=== PATIENT | male | born 1985 | race Caucasian/White ===

== ENCOUNTER 2025-06-10 10:12 | Emergency (ER) | payer BC, SELFPAY ==
[2025-06-10 10:15] VITALS: BP 121/88; PULSE 89; RESP 18; TEMP 36.7; O2SAT 98; BMI 34.3
--- OUTSIDE RECORDS SUMMARY | 2025-06-10 10:56 | XMS_ITS | Encounter Summary ---
Author Organization [facility] Address 1 [facility] [place] [address] Care Team Providers Care Closing Machine Operator Name Role Phone Caleb Barillas MD Primary Care Provider Reason for Visit * Reason Onset Date Comments Medication Refill 05/25/2025 Encounter Details Date Type Department Care Team (Late st Contact Info) Description 05/25/2025 Refill Primary Care, [place] [address] [place] [address] Caleb Barillas MD [address] [place] [address] Social History Tobacco Use Types Packs/Day Years Used Date Smoking Tobacco: Former Cigars Smokeless Tobacco: Former Alcohol Use Standard Drinks/Week Comments Yes 0 (1 standard drink = 0.6 oz pur e alcohol) occ Sex and Gender Information Value Date Recorded Sex Assigned at Not on file Legal Sex Male 7:55 PM EDT Gender Identity Not on file Sexual Orientation Not on file documented as of this encounter Functional Status * Deaf or serious difficulty hearing? Answer Date of Assessment Author No 07/18/2022 3:00 PM EDT Susan Orozco RN * Blind or serious difficulty seeing even with glasses? Answer Date of Assessment Author No 07/18/2022 3:00 PM EDT Susan Orozco RN * Serious difficulty walking/climbing stairs? Answer Date of Assessment Author No 07/18/2022 3:00 PM EDT Susan Orozco RN * Difficulty dressing or bathing? Answer Date of Assessment Author No 07/18/2022 3:00 PM EDT Susan Orozco RN * Has difficulty doing errands because of physical, mental or emotional condition? Answer Date of Assessment Author No 07/18/2022 3:00 PM EDT Susan Orozco RN documented as of this encounter Mental Status * Has serious difficulty concentrating, remembering or making decisions because of physical, mental or emotional condition ? Answer Entry Date Author No 07/18/2022 3:00 PM EDT Susan Orozco RN documented in this encounter Plan of Treatment Not on file documented as of this encounter Visit Diagnoses Not on filedocumented in this encounter Care Teams Closing Machine Operator Relationship Specialty Start Date End Date Caleb Barillas MD [address] [place] [address] [place] [address] PCP - General INTERNAL MEDICINE 12/30/19 documented as of this encounter
--- OUTSIDE RECORDS SUMMARY | 2025-06-10 10:56 | XMS_ITS | Encounter Summary ---
Author Organization [facility] Address 1 [facility] [place] [address] Care Team Providers Care Dimensional Inspector Name Role Phone Caleb Barillas MD Primary Care Provider [phone] Reason for Visit * Reason Comments Medication Refill Encounter Details Date Type Department Care Team (Late st Contact Info) Description 01/21/2022 Refill Family Medicine, [address] [address] Bhavana, Alf Nam MD [address] [place] [address] Social History Tobacco Use Types Packs/Day Years Used Date Smoking Tobacco: Every Day Cigars Smokeless Tobacco: Former Alcohol Use Standard Drinks/Week Comments Yes 15 (1 standard drink = 0.6 oz pu re alcohol) Sex and Gender Information Value Date Recorded Sex Assigned at Not on file Legal Sex Male 7:55 PM EDT Gender Identity Not on file Sexual Orientation Not on file COVID-19 Exposure Response Date Recorded In the last 10 days, have yo u been in contact with someone who was confirmed or suspected to have Coronavirus/COVID-19? No / Unsure 01/07/2022 2:29 PM EDT documented as of this encounter Functional Status * Deaf or serious difficulty hearing? Answer Date of Assessment Author No 04/05/2021 11:24 AM EDT Shelia Carter RN * Blind or serious difficulty seeing even with glasses? Answer Date of Assessment Author No 04/05/2021 11:24 AM EDT Carter, J essica A, RN * Serious difficulty walking/climbing stairs? Answer Date of Assessment Author No 04/05/2021 11:24 AM Shelia Alvarez RN * Difficulty dressing or bathing? Answer Date of Assessment Author No 04/05/2021 11:24 AM Shelia Alvarez RN * Has difficulty doing errands because of physical, mental or emotional condition? Answer Date of Assessment Author No 04/05/2021 11:24 AM Shelia Alvarez RN documented as of this encounter Mental Status * Has serious difficulty concentrating, remembering or making decisions because of physical, mental or emotional condition ? Answer Entry Date Author No 04/05/2021 11:24 AM Shelia Alvarez RN documented in this encounter Plan of Treatment Not on file documented as of this encounter Visit Diagnoses Not on filedocumented in this encounter Additional Health Concerns Infection Onset Date Last Indicated Resolved Time COVID-19 Rule-out 04/04/2022 04/04/2022 04/04/2022 8:01 PM EDT documented as of this encounter Care Teams Dimensional Inspector Relationship Specialty Start Date End Date Caleb Barillas MD [address] [place] [address] PCP - General INTERNAL MEDICINE 12/30/19 documented as of this encounter
--- OUTSIDE RECORDS SUMMARY | 2025-06-10 10:56 | XMS_ITS | Encounter Summary ---
Author Organization [facility] Address 1 [facility] [place] [address] Care Team Providers Care Registered Veterinary Technician Name Role Phone Caleb Barillas MD Primary Care Provider [phone] Reason for Visit * Reason Comments Medication Refill Encounter Details Date Type Department Care Team (Late st Contact Info) Description 01/23/2022 Refill Family Medicine, [address] [address] Bhavana, Alf Nam MD [address] [place] [address] Social History Tobacco Use Types Packs/Day [...] documented as of this encounter Care Teams Registered Veterinary Technician Relationship Specialty Start Date End Date Caleb Barillas MD [address] [place] [address] PCP - General INTERNAL MEDICINE 12/30/19 documented as of this encounter
--- OUTSIDE RECORDS SUMMARY | 2025-06-10 10:56 | XMS_ITS | Encounter Summary ---
Author Organization [facility] Address 1 [facility] [place] [address] Care Team Providers Care Printing Plate Clerk Name Role Phone Caleb Barillas MD Primary Care Provider [phone] Reason for Visit * Reason Onset Date Comments Medication Refill 05/19/2025 Encounter Details Date Type Department Care Team (Late st Contact Info) Description 05/19/2025 Refill Primary Care, [place] [address] [place] [address] Caleb Barillas MD [address] [place] [address] Social History Tobacco Use Types Packs/Day [...] on filedocumented in this encounter Care Teams Printing Plate Clerk Relationship Specialty Start Date End Date Caleb Barillas MD [address] [place] [address] [place] [address] PCP - General INTERNAL MEDICINE 12/30/19 documented as of this encounter
--- OUTSIDE RECORDS SUMMARY | 2025-06-10 10:56 | XMS_ITS | Encounter Summary ---
Author Organization [facility] Address 1 [facility] [place] [address] Care Team Providers Care Paper Cup Machine Tender Name Role Phone Caleb Barillas MD Primary Care Provider [phone] Reason for Visit * Reason Comments Medication Refill Encounter Details Date Type Department Care Team (Late st Contact Info) Description 04/24/2023 Refill Internal Medicine, [address] [address] Caleb Barillas MD [address] [place] [address] [place] [address] Social History Tobacco Use Types Packs/Day [...] suspected to have Coronavirus/COVID-19? No / Unsure 04/02/2023 6:04 PM EDT documented as of this encounter [...] on filedocumented in this encounter Care Teams Paper Cup Machine Tender Relationship Specialty Start Date End Date Caleb Barillas MD [address] [place] [address] PCP - General INTERNAL MEDICINE 12/30/19 documented as of this encounter
--- OUTSIDE RECORDS SUMMARY | 2025-06-10 10:56 | XMS_ITS | Clinical Summary ---
Author Organization [facility] Address 1 [facility] [address] [place], [place] [address] Care Team Providers Care Site Supervisor Name Role Phone Caleb Barillas MD Primary Care Provider [phone] Allergies Active Allergy Reactions Criticality Noted Date Comments Amoxicillin Anaphylaxis,Rash High 07/17/2019 Flushing SOB Atorvastatin Myalgia Low 03/28/2021 Medications levothyroxine (SYNTHROID) 175 mcg Oral Tablet Take 1 Tablet (175 mcg total) by mouth Every morning 90 Tablet 1 5 Active lisinopriL-hydr ochlorothiazide (ZESTORETIC) 10-12.5 mg Oral Tablet Take 1 Tablet by mouth Daily 90 Tablet 5 Active pantoprazole (PROTONIX) 40 mg Oral Tablet, Delayed Release (E.C.) Take 1 Tablet (40 mg total) by mouth Daily 90 Tablet 5 Active rosuvastatin (CRESTOR) 20 mg Oral Tablet Take 1 Tablet (20 mg total) by mouth Every evening 90 Tablet 5 Active pantoprazole (PROTONIX) 40 mg Oral Tablet, Delayed Release (E.C.) Take 1 Tablet (40 mg total) by mouth Daily 90 Tablet 5 05/19/20 25 Discontinu ed(Reorder ) rosuvastatin (CRESTOR) 20 mg Oral Tablet Take 1 Tablet (20 mg total) by mouth Every evening 90 Tablet 5 06/02/20 25 Discontinu ed(Reorder ) pantoprazole (PROTONIX) 40 mg Oral Tablet, Delayed Release (E.C.) Take 1 Tablet (40 mg total) by mouth Daily 90 Tablet 5 05/25/20 25 Discontinu ed(Reorder ) Active Problems Problem Noted Date Diagnosed Date Microscopic hematuria 11/30/2024 Seasonal allergic rhinitis due to pollen 022 Gastroesophageal reflux dise ase with esophagitis without hemorrhage 05/08/2022 Assessment & Plan (05/08/2022 10:05 AM EDT): Long, plain Cuban discussion regarding differential diagnosis, further evaluations and treatment options with stated understanding. Opportunity for 2nd opinion was offered. Risks associated with this were discussed in plain Cuban in detail with stated understanding. Avoid OTC pain relievers (except Tylenol, if needed); no eating or drinking after the evening meal and stay upright for several hours after eating. No coffee, alcohol or tobacco. Weight loss recommended. Risks and benefits of Protonix were discussed in plain Cuban and detail with stated understanding and patient agrees with plans. Peripheral edema 01/07/2022 Overview (02/06/2022): Likely secondary to severe hypothyroidism Assessment & Plan (01/07/2022 2:55 PM EDT): Long, plain Cuban discussion regarding differential diagnosis, further evaluations and treatment options with stated understanding. Opportunity for 2nd opinion was offered. Risks associated with this were discussed in plain Cuban in detail with stated understanding. We will proceed with an echocardiogram. Severe obstructive sleep apnea-hypopnea syndrome 12/19/2021 Overview (12/19/2021): 2021 apnea-hypopnea index 82 Hyperlipidemia, mixed 04/04/2021 Drug-induced myopathy 03/28/2021 Acquired hypothyroidism 03/28/2021 Obesity (BMI 30.0-34.9) 12/30/2019 Nicotine dependence, cigarettes, in remission Overview (05/08/2022): Patient quit December 2021 Assessment & Plan (03/27/2021 12:03 PM EDT): Tobacco cessation counseling performed. Assessment & Plan (12/30/2019 11:11 AM EDT): Tobacco cessation counseling performed. Resolved Problems Problem Noted Date Diagnosed Date Resolved Date Bilateral carpal tunnel syndrome 11/15/2024 11/30/2024 Assessment & Plan (11/15/2024 10:58 AM EST): Long, plain Cuban discussion regarding differential diagnosis, further evaluations and treatment options with stated understanding. Opportunity for 2nd opinion was offered. Risks associated with this were discussed in plain Cuban in detail with stated understanding. Risks and benefits of Medrol and wrist splints were discussed in plain Cuban and detail with stated understanding and patient agrees with plans. Esophageal dysphagia 05/08/2022 023 Assessment & Plan (05/08/2022 10:06 AM EDT): Long, plain Cuban discussion regarding differential diagnosis, further evaluations and treatment options with stated understanding. Opportunity for 2nd opinion was offered. Risks associated with this were discussed in plain Cuban in detail with stated understanding. Will get a 2nd opinion from Dr. Bull at the patient's request regarding EGD and possible dilatation. Sebaceous cyst 03/27/2021 05/08/2022 Sinus arrhythmia 03/27/2021 06/19/2022 Premature atrial contraction 12/30/2019 06/19/2022 Assessment & Plan (12/30/2019 11:10 AM EDT): Reportedly, negative cardiology evaluation per Cardiology. Changing skin lesion 12/30/2019 021 Assessment & Plan (12/30/2019 11:11 AM EDT): Left forearm-Long, plain Cuban discussion regarding differential diagnosis, further evaluations and treatment options with stated understanding. Opportunity for 2nd opinion was offered. Risks associated with this were discussed in plain Cuban in detail with stated understanding. Will get a 2nd opinion from Dr. Telles regarding excision Encounters Date Type Department Care Team Description 06/02/2025 Refill Primary Care, [place] [address] [place] [address] Caleb Barillas MD 05/25/2025 Refill Primary Care, [place] [address] [place] [address] Caleb Barillas MD 05/19/2025 Refill Primary Care, [facility] [address] [place] [address] Caleb Barillas MD 03/23/2025 Refill Primary Care, [facility] [address] [place] [address] Caleb Barillas MD from Last 3 Months Family History Medical History Relation Name Comments Thyroid Disease Mother Colon Cancer Neg Hx Relation Name Status Comments Father Alive Mother Alive Social History Tobacco Use Types Packs/Day Years Used Date Smoking Tobacco: Former Cigars Smokeless Tobacco: Former Tobacco Cessation:Counseling Given: Not Answered Alcohol Use Standard Drinks/Week Comments Yes 0 (1 standard drink = 0.6 oz pur e alcohol) occ Sex and Gender Information Value Date Recorded Sex Assigned at Not on file Legal Sex Male 7:55 PM EDT Gender Identity Not on file Sexual Orientation Not on file Last Filed Vital Signs Vital Sign Reading Time Taken Comments Blood Pressure 130/80 11/30/2024 9:31 AM EST Pulse 98 11/30/2024 9:31 AM EST Temperature 36.2 C (97.2 F) 10/25/2023 1:51 AM EST Respiratory Rate 16 11/30/2024 9:31 AM EST Oxygen Saturation 99% 11/30/2024 9:31 AM EST Inhaled Oxygen Concentration - - Weight 125 kg (276 lb) 11/30/2024 9:31 AM EST Height 190.5 cm (6' 3 ) 11/30/2024 9:31 AM EST Body Mass Index 34.5 11/30/2024 9:31 AM EST Plan of Treatment Health Maintenance Due Date Last Done Comments Hepatitis C screening 1984 HIV Screening 02/23/1999 Adult Tdap-Td (1 - Tdap) 02/23/2003 Hepatitis B Vaccine (1 of 3 - 19+ 3-dose series) 02/23/2003 NonMedicare Preventative Exam 05/29/2024 05/29/2023 Covid-19 Vaccine ( - 2023-2 5 season) 2024 [facility] [employer] MEDICAL MANA[employer] Cap ture Hidden 05/20/2025 Influenza Vaccine (#1) 2025 Depression Screening 11/15/2025 11/15/2024, 05/29/2023, 05/08/2022, Additional history exists HPV Vaccine (Optional 27-45 Years) (No Doses Required) Completed Insurance [facility] Care Teams Site Supervisor Relationship Specialty Start Date End Date Caleb Barillas MD [facility] [place] [address] PCP - General INTERNAL MEDICINE 12/30/19
--- OUTSIDE RECORDS SUMMARY | 2025-06-10 10:56 | XMS_ITS | Encounter Summary ---
Author Organization [facility] Address 1 [facility] [place] [address] Care Team Providers Care Director Account Management Name Role Phone Caleb Barillas MD Primary Care Provider [phone] Reason for Visit * Reason Onset Date Comments Medication Refill 06/02/2025 Encounter Details Date Type Department Care Team (Late st Contact Info) Description 06/02/2025 Refill Primary Care, [place] [address] [place] [address] Caleb Barillas MD [address] [place] [address] Social History Tobacco Use Types Packs/Day [...] on filedocumented in this encounter Care Teams Director Account Management Relationship Specialty Start Date End Date Caleb Barillas MD [address] [place] [address] [place] [address] PCP - General INTERNAL MEDICINE 12/30/19 documented as of this encounter
--- NOTE | 2025-06-10 11:01 | ED_ITS ---
Discharge Plan Disposition Patient Disposition: Home, Self-Care Prescriptions Prescriptions: New carboxymethylcellulose sodium [Refresh Liquigel] 1 % drops, liquid gel 1 drp ophthalmic (eye) Q6H PRN (Reason: dry eye(s)) Qty: 15 0RF erythromycin 5 mg/gram (0.5 %) ointment 1 applic Eye-Right Q8H 7 Days Qty: 3.5 0RF No Action lisinopril 20 mg Tablet 20 mg PO DAILY pantoprazole [Protonix] 20 mg Tablet,Delayed Release (Dr/Ec) 20 mg PO DAILY rosuvastatin 10 mg Tablet 10 mg PO DAILY levothyroxine 13 mcg Capsule 13 mcg PO DAILY Referrals Follow up/Referrals: Provider,Referral, MD [Primary Care Provider, Medical] - See instructions Activity Restrictions/Add. Instructions Additional Instructions/Restrictions: You were seen in the emergency department for corneal abrasion. Please apply erythromycin ointment 3 times daily. Please use refresh eyedrops as needed. Please follow-up with an burring machine operator in 3 to 5 days to assess for improvement in symptoms. If symptoms worsen, or new symptoms develop, please return to the emergency department. Clinical Impressions Clinical Impression: Corneal abrasion Print Language Print Language: Turkish Discharge ED Provider: Lion Rapp Adult HPI General Chief complaint: Eye Problems Stated complaint: irritarted right eye Time Seen by Provider: 06/10/25 11:01 Mode of Arrival: Ambulatory Source of Information: Patient Description of Symptoms (Recalled from ER Triage Doc. by RN): Pt presents to the ED with discomfort in the right eye. 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 no acute pain, just complains of discomfort. states the discomfort started around 0530 this morning when he woke up. History of Present Illness HPI narrative: This patient is a 40-year-old male with past medical history of mild myopia who presents to the emergency department with complete open full body sensation in the right eye. The patient reports that he woke up this morning with a persistent and mildly uncomfortable foreign body sensation in the right eye. 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 In the emergency department today he is hemodynamically stable, comfortable. He denies any acute vision changes or decrease in visual acuity. Related Data Home Medications ?Medication ?Instructions ?Recorded ?Confirmed levothyroxine 13 mcg capsule 13 mcg PO DAILY 06/10/25 06/10/25 lisinopril 20 mg tablet 20 mg PO DAILY 06/10/2505/21 pantoprazole 20 mg tablet,delayed 20 mg PO DAILY 06/1006/10/25 release (Protonix) rosuvastatin 10 mg tablet 10 mg PO DAILY 06/10/2505/21 Previous Rx's ?Medication ?Instructions ?Recorded carboxymethylcellulose sodium 1 % 1 drp ophthalmic (ey e) Q6H PRN dry 06/10/25 eye liquid gel drops (Refresh eye(s) #15 mL Liquigel) erythromycin 5 mg/gram (0.5 %) eye 1 applic Eye-Right Q8H 7 days #3.5 06/10/25 ointment grams Allergies Allergy/AdvReac Type Severity Reaction Status Date / Time No Known Allergies Allergy Verified 06/10/25 11:49 [facility] Disclaimer: The information contained in this section may have been updated after the patient was seen, as this information can be updated by other users. Medical History (Updated 06/10/25 @ 11:40 by Lion Rapp MD) High blood pressure High cholesterol GERD (gastroesophageal reflux disease) Social History Smoking Status: Current every day smoker alcohol intake: current current occupational status: employed Travel in the last 8 weeks?: None ROS Obtained: Yes All systems reviewed & no additional complaints except as documented Physical Exam General General appearance: alert and in no apparent distress Head Head exam: atraumatic and normocephalic Eye Eye exam: Present normal appearance, PERRL and EOMI ENT ENT exam: Present normal exam and normal external ear exam Neck Neck exam: Present normal inspection, full ROM and trachea midline Chest Chest inspection: Present normal inspection and symmetric chest wall rise; Absent tenderness Respiratory Respiratory exam: Absent respiratory distress Cardiovascular Cardiovascular exam: Present regular rate, normal rhythm and other (appears warm and well perfused) Abdominal Exam Abdominal exam: Absent distention or tenderness exam: Absent deferred Extremities Exam Extremities exam: Present normal inspection and full ROM Neurological Exam Neurological exam: Present alert and oriented X3 Psychiatric Psychiatric exam: Present normal affect Skin Skin exam: Present warm and dry Medical Decision Making Medical Records Medical records reviewed: Yes I reviewed the patient's medical records. Screening: Per USPSTF and CDC recommendations, given the prevalence of disease in our region, it is our hospital?s policy to screen for HIV and viral Hepatitis for all patients aged 18 and over and those with ongoing risk factors. Jesse Inquiry Pt receiving controlled substance: No Jesse was queried for this patient: No Vital Signs: 06/10/25 10:15 06/10/25 12:33 Temperature 98.1 F 98.1 F Temperature Source Oral Oral Pulse Rate 75 Pulse Rate [Right Radial] 89 Respiratory Rate 18 18 Blood Pressure 120/80 Blood Pressure [Right Arm] 121/88 Blood Pressure Mean [Right Arm] 99 Blood Pressure Source Automatic Cuff Blood Pressure Source [Right Arm] Automatic Cuff Blood Pressure Position [Right Arm] Sitting 02 Sat by Pulse Oximetry 98 Oxygen Delivery Method Room Air Room Air Lab Data Lab results reviewed: Yes I reviewed the patient's lab results. Orders (Tests/Meds): ED MEDICATIONS Discontinued Medications Generic Name Dose Route Start Last Admin Trade Name Freq PRN Reason Stop Dose Admin Fluorescein Sodium 1 mg 06/10/25 11:47 06/10/25 11:47 Fluorescein Sodium 1mg Strip OP 06/10/25 11:48 1 mg ONCE ONE Administration Tetracaine HCl 0 ml 06/10/25 11:47 06/10/25 11:47 Tetracaine 0.5% Opth Gabriela 15ml OP 06/10/25 11:48 15 ml ONCE ONE Administration Medical Decision Narrative: MDM In summary, this 40-year-old male presents to the emergency department today with foreign body sensation in the right eye. Initial evaluation the patient is comfortable and hemodynamically stable. Differential diagnosis includes but is not limited to abrasion, retained foreign body, conjunctivitis, allergic conjunctivitis. I performed a careful bedside physical exam. The patient had baseline visual acuity, no obvious damage to the external eye. I inverted the patient's eyelid and observed with no foreign bodies or sign of trauma to the inner eyelid. I numbed the patient's eye with tetracaine and performed fluorescein stain and Gunn lamp exam. The patient had a small corneal abrasion toward the lateral aspect of the right eye. He reported immediate symptomatic improvement in his symptoms when tetracaine was applied to his eye. The combination of a visualized small corneal abrasion and symptomatic improvement with the numbing medication confirmed the diagnosis of corneal abrasion. I think it is most likely that the patient's rubbed his eyes while sleeping and accidentally gave himself a small corneal abrasion. The patient reported that he does have an burring machine operator. I prescribed him hydrating eyedrops and erythromycin ointment and instructed him to follow-up with ophthalmology. Provided careful return precautions of which he verbalized understanding. Critical Care Critical Care Time Critical Care Time: No
[2025-06-10] MEDS: TETRACAINE 0.5% OPTH SOL 15ML OP (11:47)
[2025-06-10] MEDS: FLUORESCEIN SODIUM 1MG STRIP 1 MG OP (11:47)
[2025-06-10 12:33] VITALS: BP 120/80; PULSE 75; RESP 18; TEMP 36.7; O2SAT 98
== END 2025-06-10 12:15 | disposition home or self-care (01) ==
PROVIDERS: Emergency Provider Student in an Organized Health Care Education/Training Program
DX: S05.01XA Injury of conjunctiva and corneal abrasion without foreign body, right eye, initial encounter (principal); X58.XXXA Exposure to other specified factors, initial encounter
CPT/HCPCS: 99283